=== PATIENT | male | born 1985 | race Caucasian/White ===

== ENCOUNTER 2017-03-27 16:19 | Emergency (ER) | payer OTHER ==
--- NOTE | 2017-03-27 16:44 | ED DYSPNEA/ASTHMA COMPLAINT ---
History of Present Illness General Chief Complaint: General Adult Stated Complaint: PT IS HAVING PROBLEM BREATHING Source: patient Exam Limitations: no limitations Vital Signs & Intake/Output Vital Signs & Intake/Output Vital Signs Date Time Temp Pulse Resp B/P B/P Pulse O2 O2 Flow FiO2 Mean Ox Delivery Rate 03/27 1955 98.6 74 18 128/72 98 Room Air 03/27 1721 97 Room Air 03/27 1652 99 03/27 1626 98.7 78 22 132/79 97 Allergies Coded Allergies: shrimp (BLOTCHY 03/27/17) Triage Note: PER PT CANT BREATHE X 2 DAYS, SEEN BY PMD 2 WEEKS AGO FOR ASTHMA BUT LAST 2 DAYS MUCH WORSE, STOPPED AND GOT SOME MUCINEX TODAY BUT FEELING WORSE CANT EVEN CONCENTRATE. Triage Nurses Notes Reviewed? yes HPI: Patient is a 31-year-old male presents complaining of shortness of breath and chest pain. Symptoms for approximately one week, worsening today. Patient having associated chest heaviness and dyspnea with exertion. Mild occasional cough. Patient with a history of asthma, has been using Flovent, prednisone, albuterol with no improvement. Minimal occasional wheezing. Patient has an uncle that had a myocardial infarction at the age of 26. Patient denies lower extremity swelling, fevers, chills. (CARRIE GUERRA) Reconcile Medications Albuterol Sulfate (Proair Hfa) 90 MCG HFA.AER.AD 2 PUF INH Q4H PRN ASTHMA ( Reported) Azithromycin (Zithromax) 250 MG TABLET 1 DP PO AD ASTHMA/BRONCHITIS 2 the first day followed by 1 for days 2-5 Brompheniramine/Pseudoephed/Dm (Bromfed Dm Cough Syrup) 2 MG-30 MG-10 MG/5 ML SYRUP 5-10 ML PO Q4-6 PRN PRN cough Fluticasone Propionate (Flovent Hfa) 110 MCG/ACTUATION AER.W.ADAP 2 PUF INH BID ASTHMA (Reported) Multivitamin (Multi-Day Vitamins) 1 EACH TABLET 1 TAB PO DAILY SUPPLEMENT ( Reported) Prednisone (Deltasone) 20 MG TABLET 1 TAB PO BID ASTHMA (MARIE MÉNDEZ) Past History Travel History Traveled to [place] past 21 day No Medical History Any Pertinent Medical History? see below for history Neurological: NONE EENT: NONE Cardiovascular: NONE Respiratory: asthma Gastrointestinal: NONE Hepatic: NONE Renal: NONE Musculoskeletal: NONE Psychiatric: NONE Blood Disorders: NONE Surgical History Surgical History: non-contributory Psychosocial History What is your primary language Turkmen Tobacco Use: Never used Family History Comment: Uncle OK at age 26 Hx Contributory? Yes (CARRIE GUERRA) Review of Systems Review of Systems Constitutional: Denies: chills, fever. EENTM: Reports: no symptoms. Respiratory: Reports: cough (mild), short of breath, wheezing (occasional, mild). Cardiovascular: Reports: chest pain. Denies: peripheral edema. GI: Denies: abdominal pain, nausea, vomiting. Genitourinary: Reports: no symptoms. Musculoskeletal: Reports: no symptoms. Skin: Reports: no symptoms. Neurological/Psychological: Reports: no symptoms. Hematologic/Endocrine: Reports: no symptoms. Immunologic/Allergic: Reports: no symptoms. (CARRIE GUERRA) Physical Exam Physical Exam General Appearance: well developed/nourished, alert, awake, anxious Head: atraumatic, normal appearance Eyes: Bilateral: normal appearance, PERRL, EOMI. Ears, Nose, Throat: normal pharynx, normal ENT inspection, hearing grossly normal Neck: normal inspection, supple, full range of motion Respiratory: normal breath sounds, chest non-tender, no respiratory distress, lungs clear Cardiovascular: regular rate/rhythm Gastrointestinal: soft, non-tender Extremities: normal inspection, normal capillary refill, normal range of motion, no edema Neurologic/Psych: no motor/sensory deficits, awake, alert, oriented x 3, normal gait, normal mood/affect Skin: intact, normal color, warm/dry Lymphatic: no anterior cervical annalisa Core Measures ACS in differential dx? Yes ASA ordered for poss ACS? No-ACS ruled out Severe Sepsis Present: No Septic Shock Present: No (CARRIE GUERRA) Progress Differential Diagnosis: asthma, AMI, bronchitis, CHF, COPD, pulmonary embolism, pneumonia, unstable angina Plan of Care: Orders Procedure Date/time Status TROPONIN LEVEL 03/27 1649 Complete D-DIMER 03/27 1649 Complete COMPREHENSIVE METABOLIC PANEL 03/27 1649 Complete CBC WITHOUT DIFFERENTIAL 03/27 1649 Complete EKG 03/27 164 Active Laboratory Tests 03/27/17 1700: Anion Gap 12, Estimated GFR > 60, BUN/Creatinine Ratio 21.0, Glucose 86, Calcium 9.4, Total Bilirubin 0.5, AST 17, ALT 38, Alkaline Phosphatase 44, Troponin I < 0.01, Total Protein 6.7, Albumin 4.4, Globulin 2.3, Albumin/Globulin Ratio 1.9, D-Dimer 916 H, CBC w Diff NO MAN DIFF REQ, RBC 4.93, MCV 90.1, MCH 30.2, RDW 13.9, MPV 9.4, Gran % 52.5, Lymphocytes % 36.5, Monocytes % 8.3, Eosinophils % 1.9, Basophils % 0.8, Absolute Granulocytes 4.7, Absolute Lymphocytes 3.2, Absolute Monocytes 0.7 H, Absolute Eosinophils 0.2, Absolute Basophils 0.1, PUBS MCHC 33.6 03/27/2017 5:51:23 PM: Patient reports no improvement after nebulizer treatment. Results of x-ray and labs discussed with patient. CTA ordered to rule out pulmonary embolism. 03/27/2017 7:07:30 PM: Patient resting comfortably. Discussed results with patient. Awaiting results of CT scan. Signed out to Marie HUMPHREYS (DIOR HUMPHREYS,CARRIE) Diagnostic Imaging: Viewed by Me: Radiology Read. Discussed w/RAD: Radiology Read. CXR Impression: PATIENT: SUE CRUZ PRESENT AGE: 31 PATIENT ACCOUNT NO: [id number] : 84 LOCATION: [facility] ORDERING PHYSICIAN: CARRIE HUMPHREYS SERVICE DATE: 03/27/17 EXAM TYPE: RAD - XRY-CHEST XRAY, PA AND LATERAL EXAMINATION: XR CHEST CLINICAL INFORMATION: Dyspnea. COMPARISON: None TECHNIQUE: 2 views of the chest were obtained. FINDINGS: The cardiomediastinal silhouette is unremarkable. There are subtle hazy opacity identified just lateral to the heart margin on the frontal radiograph, overlying the posterior aspect of the heart, left atrium, on the lateral view which could represent an evolving infiltrate and pneumonia in the anterior basal segment of the left lower lobe in the proper clinical setting. The lungs and pleural spaces otherwise appear clear without evidence of congestion, consolidation, or significant appearing effusion or atelectasis. There is no evidence of pneumothorax or pulmonary edema. Included osseous structures appear largely unremarkable. IMPRESSION: Questionable evolving left lower lobe infiltrate. DICTATED BY: TANIYA ROBERTS MD DATE/TIME DICTATED:03/27/171713 PROCESSING TECHNOLOGIST:JACKIE DATE/TIME TRANSCRIBED:03/27/171713 CONFIDENTIAL, DO NOT COPY WITHOUT APPROPRIATE AUTHORIZATION. <Electronically signed in Other Vendor System> SIGNED BY: TANIYA ROBERTS MD 03/27/171718 Initial ED EKG: normal sinus rhythm, nonspecific ST T wave chg Hand-Off Endorsed To: MARIE MÉNDEZ Endorsed Time: 1901 Pending: CT (CARRIE GUERRA) Diagnostic Imaging: Viewed by Me: CT Scan. Discussed w/RAD: CT Scan. Radiology Impression: SERVICE DATE: 03/27/17 EXAM TYPE: CAT - CTA CHEST- PULMONARY EMBOLISM EXAMINATION: CT ANGIOGRAM OF THE CHEST WITH AND WITHOUT CONTRAST (CT PULMONARY ANGIOGRAM FOR PE) CLINICAL INFORMATION: Dyspnea, chest pain and elevated d-dimer. COMPARISON: None TECHNIQUE: Prior to contrast administration, noncontrast localization images were obtained. Subsequently, multidetector volumetric imaging was performed from the thoracic inlet to below the diaphragms following the administration of 79 mL Omnipaque 350 intravenous contrast. No contrast reaction reported. Sagittal, coronal, and MIP oblique sagittal reformatted images were obtained on the CT workstation, uploaded to PACS, and reviewed. Total exam dose-length product 473 mGy-cm. FINDINGS: QUALITY OF STUDY/CONTRAST BOLUS: Satisfactory PULMONARY ARTERIES: No focal filling defects are identified within the pulmonary arteries to suggest an underlying embolus. THORACIC AORTA: Not well opacified on this examination, however there is no evidence of aneurysm or dissection. LUNG: No focal consolidation, nodules or masses. PLEURA: No pleural effusion or pneumothorax. MEDIASTINUM: Normal heart size. No pericardial effusion. No hilar or mediastinal lymphadenopathy. No evidence of septal bowing or right heart strain. CHEST WALL/AXILLA: No axillary or internal mammary lymphadenopathy. OSSEOUS STRUCTURES: No acute or suspicious osseous abnormality. UPPER ABDOMEN: Unremarkable. No reflux of contrast into the hepatic veins to suggest elevated right heart pressures. IMPRESSION: No evidence of deep venous thrombosis or other acute intrathoracic pathology. DICTATED BY: TANIYA ROBERTS MD DATE/TIME DICTATED:03/27/171907 PROCESSING TECHNOLOGIST:JACKIE DATE/TIME TRANSCRIBED:03/27/171907 CONFIDENTIAL, DO NOT COPY WITHOUT APPROPRIATE AUTHORIZATION. Comments: 03/27/2017 8:56:15 PM Despite decompression reading no evidence of DVT higher up it reads that there is no evidence of pulmonary embolism. I made [place] [facility] aware of the dictation error. Patient treated as a bronchitis. Referred to pulmonology. Return if any other concerns. Understands and agrees with plan of care. (HOMAR HUMPHREYS,MARIE) Departure Departure Disposition: STILL A PATIENT Condition: Stable Clinical Impression Primary Impression: Dyspnea Qualifiers: Dyspnea type: unspecified Qualified Code: R06.00 - Dyspnea, unspecified Referrals: PASHA FLORES,HEDY AYOUB MD,MIGEL (PCP/Family) Departure Forms: Customer Survey General Discharge Information (DIOR HUMPHREYS,CARRIE) Departure Additional Instructions: Taking Z-Wesley, prednisone, and Bromfed as prescribed. Follow-up with shipping/receiving manager provided. Return if any concerns worsening symptoms. Please go over all results of today's visit with your primary care doctor. Contact your primary care doctor to let them know you were here in the emergency room. There may be nonspecific findings which may not be related to your visit today here in the emergency room but may require further evaluation and chronic monitoring by your primary care doctor. If you had a laceration today the chance of foreign body always remains. You should follow-up with your primary care doctor for recheck in 3-5 days for a wound check. If you had an x-ray done there is a chance that a fracture could have been missed on initial read and you should follow-up with your primary care doctor for repeat x-rays if symptoms persist. If your blood pressure was elevated here in the emergency room please have rechecked by her primary care doctor within the next 48 hours by your primary care doctor. If you were prescribed a narcotic here in the emergency room or any type of controlled substances you're not allowed to drive while taking this medication or operate any type of heavy machinery. Narcotics can make you feel lightheaded dizziness nausea and can cause constipation. You may need to lease picker a stool softener. Thank you for choosing [facility] emergency room. Please return to the emergency room immediately if you have any other concerns worsening of symptoms. Prescriptions: Current Visit Scripts Brompheniramine/Pseudoephed/Dm (Bromfed Dm Cough Syrup) 5-10 ML PO Q4-6 PRN PRN cough #120 ML Prednisone (Deltasone) 1 TAB PO BID #10 MG Azithromycin (Zithromax) 1 DP PO AD #6 TAB 2 the first day followed by 1 for days 2-5 (MARIE MÉNDEZ) PA/LOBSTER FISHERMAN Co-Sign Statement Statement: ED Attending supervision documentation- [] I saw and evaluated the patient. I have also reviewed all the pertinent lab results and diagnostic results. I agree with the findings and the plan of care as documented in the PA's/LOBSTER FISHERMAN's documentation. x I have reviewed the ED Record and agree with the PA's/LOBSTER FISHERMAN's documentation. [] Additions or exceptions (if any) to the PAs/LOBSTER FISHERMAN's note and plan are summarized below: [] (GONSALO FLORES,ANA M) Critical Care Note Critical Care Note Critical Care Time: non-applicable (DIOR HUMPHREYS,CARRIE)
[2017-03-27 17:12] LABS: ABSOLUTE BASOPHIL COUNT 0.1 /CUMM (0.0-0.2); ABSOLUTE EOSINOPHIL COUNT 0.2 /CUMM (0.0-0.7); ABSOLUTE GRANULOCYTE CT 4.7 /CUMM (1.4-6.5); ABSOLUTE LYMPH COUNT 3.2 /CUMM (1.2-3.4); ABSOLUTE MONOCYTE COUNT 0.7 /CUMM (0.10-0.60); BASOPHIL % 0.8 % (0.0-2.0); EOSINOPHIL % 1.9 % (0-5); GRANULOCYTE % 52.5 % (42.2-75.2); HEMATOCRIT 44.4 % (42-52); MEAN CORPUSCULAR HGB 30.2 PG (27.0-31.0); MEAN CORPUSCULAR HGB CONC 33.6 G/DL (33.0-37.0); MEAN CORPUSCULAR VOLUME 90.1 FL (80.0-94.0); MEAN PLATELET VOLUME 9.4 FL (7.4-10.4); PLATELET COUNT 169 /CUMM (130-400); RBC DISTRIBUTION WIDTH 13.9 % (11.5-14.5); RED BLOOD CELL CT 4.93 /CUMM (4.70-6.10); WHITE BLOOD CELL COUNT 8.9 /CUMM (4.8-10.8)
--- NOTE | 2017-03-27 17:19 | RADIOLOGY REPORT ---
EXAMINATION: XR CHEST CLINICAL INFORMATION: Dyspnea. COMPARISON: None TECHNIQUE: 2 views of the chest were obtained. FINDINGS: The cardiomediastinal silhouette is unremarkable. There are subtle hazy opacity identified just lateral to the heart margin on the frontal radiograph, overlying the posterior aspect of the heart, left atrium, on the lateral view which could represent an evolving infiltrate and pneumonia in the anterior basal segment of the left lower lobe in the proper clinical setting. The lungs and pleural spaces otherwise appear clear without evidence of congestion, consolidation, or significant appearing effusion or atelectasis. There is no evidence of pneumothorax or pulmonary edema. Included osseous structures appear largely unremarkable. IMPRESSION: Questionable evolving left lower lobe infiltrate.
[2017-03-27] MEDS ORDERED: MULTI-DAY VITA1 EACH PO (18:04)
[2017-03-27] MEDS ORDERED: PROAIR HFA8.5 GM INH (18:04)
[2017-03-27] MEDS ORDERED: FLOVENT HFA12 G1 INH (18:04)
--- NOTE | 2017-03-27 19:22 | CT SCAN REPORT ---
EXAMINATION: CT ANGIOGRAM OF THE CHEST WITH AND WITHOUT CONTRAST (CT PULMONARY ANGIOGRAM FOR PE) CLINICAL INFORMATION: Dyspnea, chest pain and elevated d-dimer. COMPARISON: None TECHNIQUE: Prior to contrast administration, noncontrast localization images were obtained. Subsequently, multidetector volumetric imaging was performed from the thoracic inlet to below the diaphragms following the administration of 79 mL Omnipaque 350 intravenous contrast. No contrast reaction reported. Sagittal, coronal, and MIP oblique sagittal reformatted images were obtained on the CT workstation, uploaded to PACS, and reviewed. Total exam dose-length product 473 mGy-cm. FINDINGS: QUALITY OF STUDY/CONTRAST BOLUS: Satisfactory PULMONARY ARTERIES: No focal filling defects are identified within the pulmonary arteries to suggest an underlying embolus. THORACIC AORTA: Not well opacified on this examination, however there is no evidence of aneurysm or dissection. LUNG: No focal consolidation, nodules or masses. PLEURA: No pleural effusion or pneumothorax. MEDIASTINUM: Normal heart size. No pericardial effusion. No hilar or mediastinal lymphadenopathy. No evidence of septal bowing or right heart strain. CHEST WALL/AXILLA: No axillary or internal mammary lymphadenopathy. OSSEOUS STRUCTURES: No acute or suspicious osseous abnormality. UPPER ABDOMEN: Unremarkable. No reflux of contrast into the hepatic veins to suggest elevated right heart pressures. IMPRESSION: No evidence of deep venous thrombosis or other acute intrathoracic pathology.
[2017-03-27] MEDS ORDERED: ZITHROMAX250 M2 PO (19:43)
[2017-03-27] MEDS ORDERED: DELTASONE20 MG PO (19:43)
[2017-03-27] MEDS ORDERED: BROMFED DM COU118 M1 PO (19:43)
[2017-03-27 19:55] VITALS: BP 128/72
== END 2017-03-27 19:57 ==
LOC: ERH 16:19
PROVIDERS: Physician Assistant
DX: R06.00 Dyspnea, unspecified (principal); R07.9 Chest pain, unspecified
CPT/HCPCS: 1263; 1395; 93005; 93010